=== PATIENT | female | born 1950 | race Two or more races ===

== ENCOUNTER 2022-07-07 07:35 | Day surgery (SDC) | payer OTHER ==
[~2022-07-07] VITALS: Ht 154.9 cm; Wt 56.7 kg
[2022-07-07] VITALS (10 sets, daily range): BP systolic 123–152; BP diastolic 56–66
[~2022-07-07 07:35] MED LIST: ASPI1TAB20 PO; GLIP5TAB12 PO; METF-370 PO; METO25TA5 PO
[2022-07-07] MEDS ORDERED: HEPARIN SODIUM (PORCINE) 5000 UNITS/ML 1ML VIAL ONE (09:46)
[2022-07-07] MEDS ORDERED: ANGIOMAX 250 MG VIAL IV ONE (09:46)
[2022-07-07] MEDS ORDERED: VERAPAMIL 2.5MG/ML INJ 2ML VIAL IV ONE (09:46)
[2022-07-07] MEDS ORDERED: IODIXANOL 320MG/ML 100ML BTL IV ONE (09:47)
[2022-07-07] MEDS ORDERED: fentaNYL CITRATE 100 MCG/2 ML VL ONE (09:47)
[2022-07-07] MEDS ORDERED: LIDOCAINE 2%HCL (LOCAL ANESTH.) INJ 20ML MDV ONE (09:47)
[2022-07-07] MEDS ORDERED: MIDAZOLAM HCL 2MG/2ML 2ml VIAL (1mg/ml) ONE (09:47)
== END 2022-07-07 12:50 | disposition home or self-care (01) ==
LOC: CATH 07:35
PROVIDERS: ATTEND Internal Medicine Cardiovascular Disease
DX: R94.39 Abnormal result of other cardiovascular function study (principal); I25.10 Atherosclerotic heart disease of native coronary artery without angina pectoris; I10 Essential (primary) hypertension; E11.9 Type 2 diabetes mellitus without complications; E78.5 Hyperlipidemia, unspecified; Z20.822 Contact with and (suspected) exposure to COVID-19
CPT/HCPCS: 93458; J1644; J2250; J3010; Q9967; U0003; 99152

== ENCOUNTER 2024-11-05 14:13 | Emergency (ER) | payer OTHER ==
[~2024-11-05] VITALS: Ht 154.9 cm; Wt 50.0 kg
[~2024-11-05 14:13] MED LIST changes: -GLIP5TAB12 PO; +GLIP5TAB21 PO
--- NOTE | 2024-11-05 14:33 | ED.PDOC ---
HPI Comments 74-year-old female with PMHx Anxiety, HTN, DM presents with a chief complaint of palpitations x 2 months intermittently. Patient states that she has been having palpitations for the past x 2 months, but most recently began having multiple episodes this morning. Patient reports that symptoms began around 0900 this morning. Patient also mentions that she gets anxious when she has palpitations. Patient denies any nausea, vomiting, diarrhea, or active chest pain at this time. Patients EKG shows NSR with rate of 97. Blood sugar was 151 in triage. No other symptoms or modifying factors present at this time. Time Seen by MD: 14:22 Reviewed Notes: Nurses Notes, Medications, Allergies Allergies: Coded Allergies: NO KNOWN ALLERGIES (Unverified , 07/05/22) Home Meds Reported Medications Aspirin (Aspir-81) 81 Mg Tab, 1 TAB PO DAILY 07/05/22 Metoprolol Tartrate (Metoprolol Tartrate) 25 Mg Tab, 25 MG PO DAILY 07/05/22 Glipizide (Glipizide) 5 Mg Tab, 5 MG PO DAILY 07/05/22 Metformin Hydrochloride (Metformin Hcl) 500 Mg Tab, 1000 MG PO BID 07/05/22 Information Source: Patient Mode of Arrival: Ambulatory Severity: Moderate Timing: Months Duration: Intermittent Prehospital treatment: None Location: Chest (L) Radiation: No Radiation Quality: Other (PALPITATIONS) Cardiac Risk Factors: HTN, Diabetes, Other (ANXIETY) PE Risk Factors: None History of: None Past Medical History PAST MEDICAL HISTORY: Anxiety, DM, HTN Surgical History: Hysterectomy PHLEBOTOMIST ASSOCIATE History: Denies all PHLEBOTOMIST ASSOCIATE Hx Family History Family History: Reviewed,noncontributory to illness Social History Smoker: Non-Smoker Alcohol: Denies ETOH Use Drugs: Denies Drug Use Lives In: Home Constitutional: denies: chills, diaphoresis, fatigue, fever, malaise, sweats, weakness, others EENTM: denies: blurred vision, double vision, ear bleeding, ear discharge, ear drainage, ear pain, ear ringing, eye pain, eye redness, hearing loss, mouth pain, mouth swelling, nasal discharge, nose bleeding, nose congestion, nose pain, photophobia, tearing, throat pain, throat swelling, voice changes, others Respiratory: denies: cough, hemoptysis, orthopnea, SOB at rest, shortness of breath, SOB with excertion, stridor, wheezing, others Cardiovascular: reports: palpitations; denies: chest pain, dizzy spells, diaphoresis, Dyspnea on exertion, edema, irregular heart beat, left arm pain, lightheadedness, PND, syncope, others Gastrointestinal: denies: abdomen distended, abdominal pain, blood streaked bowels, constipated, diarrhea, dysphagia, difficulty swallowing, hematemesis, melena, nausea, poor appetite, poor fluid intake, rectal bleeding, rectal pain, vomiting, others Genitourinary: denies: abnormal vagina bleeding, burning, dyspareunia, dysuria, flank pain, frequency, hematuria, incontinence, pain, , vagina discharge, urgency, others Neurological: denies: dizziness, fainting, headache, left sided numbness, left sided weakness, numbness, paresthesia, pre-existing deficit, right sided numbness, right sided weakness, seizure, speech problems, tingling, tremors, weakness, others Musculoskeletal: denies: back pain, gout, joint pain, joint swelling, muscle pain, muscle stiffness, neck pain, others Integumetry: denies: bruises, change in color, change in hair/nails, dryness, laceration, lesions, lumps, rash, wounds, others Allergic/Immunocompromised: denies: Difficulty Healing, Frequent Infections, Hives, Itching, others Hematologic/Lymphatic: denies: anemia, blood clots, easy bleeding, easy bruising, swollen glands, others Endocrine: denies: excessive hunger, excessive sweating, excessive thirst, excessive urination, flushing, intolerance to cold, intolerance to heat, unexplained weight gain, unexplained weight loss, others Psychiatric: reports: anxiety; denies: bipolar disorder, depression, hopeless, panic disorder, schizophrenia, sleepless, suicidal, others All Other Systems: Reviewed and Negative Physical Exam General Appearance: No Apparent Distress HEENT: Normal ENT Inspection, Pharynx Normal, TMs Normal Neck: Full Range of Motion, Non-Tender, Normal, Normal Inspection Respiratory: Chest Non-Tender, Lungs Clear, No Accessory Muscle Use, No Respiratory Distress, Normal Breath Sounds Cardiovascular: No Edema, No JVD, No Murmur, No Gallop, Tachycardia Breast Exam: Deferred Gastrointestinal: No Organomegaly, Non Tender, No Pulsatile Mass, Normal Bowel Sounds, Soft Genitalia: Deferred Pelvic: Deferred Rectal: Deferred Extremities: No calf tenderness, Normal capillary refill, Normal inspection, No rmal range of motion, Non-tender, No pedal edema Musculoskeletal : Apperance: Normal Neurologic: Alert, 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 Was a procedure done?: No CP Differential Dx Differential Diagnosis: A-fib, Angina, ME, Pulmonary Embolus Differential Diagnosis: CHF X-Ray, Labs, Meds, VS Vital Signs Date Time Temp Pulse Resp B/P (MAP) Pulse Ox O2 Delivery O2 Flow Rate FiO2 11/05/24 20:29 97.7 79 18 150/69 (96) 98 97.7 11/05/24 14:40 97.9 93 18 147/69 (95) 96 11/05/24 14:33 97 11/05/24 14:18 97 Lab Test 11/05/24 17:15 11/05/24 15:25 11/05/24 14:26 Range/Units Troponin I High Sensitivity 12 13 13 </=34 ng/L White Blood Count 7.5 4.4-10.8 10^3/uL Red Blood Count 4.21 4.0-5.20 10^6/uL Hemoglobin 11.1 L 12.2-16.2 g/dL Hematocrit 34.2 L 36.0-46.0 % Mean Corpuscular Volume 81.3 80.0-100.0 fL Mean Corpuscular Hemoglobin 26.5 L 28.0-32.0 pg Mean Corpuscular Hemoglobin Concent 32.6 32.0-36.0 g/dL Red Cell Distribution Width 15.5 H 11.8-14.3 % Platelet Count 258 140-450 10^3/uL Mean Platelet Volume 8.5 6.9-10.8 fL Neutrophils (%) (Auto) 78.5 37.0-80.0 % Lymphocytes (%) (Auto) 13.8 10.0-50.0 % Monocytes (%) (Auto) 6.9 0.0-12.0 % Eosinophils (%) (Auto) 0.3 0.0-7.0 % Basophils (%) (Auto) 0.5 0.0-2.0 % Neutrophils # (Auto) 5.9 1.6-8.6 10 ^3/uL Lymphocytes # (Auto) 1.0 0.4-5.4 10 ^3/uL Monocytes # (Auto) 0.5 0-1.3 10 ^3/uL Eosinophils # (Auto) 0 0-0.8 10 ^3/uL Basophils # (Auto) 0 0-0.2 10 ^3/uL Nucleated Red Blood Cells 0.0 % Prothrombin Time 10.3 9.3-11.8 sec Prothrombin Time INR 0.97 0.9-1.15 Activated Partial Thromboplast Time 27.9 24.5-34.5 SEC Sodium Level 134 L 136-145 mmol/L Potassium Level 4.2 3.5-5.1 mmol/L Chloride Level 96 L 98-107 mmol/L Carbon Dioxide Level 26 20-31 mmol/L Anion Gap 12 5-15 Blood Urea Nitrogen 25 H 9-23 mg/dL Creatinine 0.73 0.550-1.02 mg/dL Glomerular Filtration Rate Calc 86 >90 mL/min BUN/Creatinine Ratio 34.2 H 10.0-20.0 Serum Glucose 141 H 74-106 mg/dL Calcium Level 10.2 8.7-10.4 mg/dL Magnesium Level 1.5 L 1.6-2.6 mg/dL Total Bilirubin 0.4 0.2-1.0 mg/dL Aspartate Amino Transferase (AST) 19 13-40 U/L Alanine Aminotransferase (ALT) 13 7-40 U/L Alkaline Phosphatase 109 46-116 U/L Total Protein 7.3 5.7-8.2 g/dL Albumin 4.8 3.2-4.8 g/dL Chest X-Ray Impression: No acute cardiopulmonary process. The CBC and chemistry panel are within normal limits The magnesium is 1.5 The patient was completely asymptomatic at this time The troponin level x3 is negative The patient was being discharged by the choice physician We did recommend that the patient should possibly observed but at this time they feel that they can have the patient follow up as an outpatient The patient will return to the emergency department's condition worsens. Images Reviewed?: Images reviewed and evaluated by me Time of 1ST Reevaluation: 14:52 Reevaluation 1ST: Unchanged Patient Education/Counseling: Diagnosis, Treatment, Prognosis Family Education/Counseling: Diagnosis, Treatment, Prognosis Departure 1 Departure Time of Disposition: 20:45 Impression: Primary Impression: Palpitations Disposition: 01 HOME / SELF CARE / HOMELESS Condition: Fair Discharged With: Self Critical Care Note Critical Care Time?: No Stability Stability form required: No Heart Score Heart Score: Heart Score Response (Comments) Value History N/A 0 EKG N/A 0 Age N/A 0 Risk Factors N/A 0 Troponin N/A 0 Total 0 I personally scribed for ROLF AVITIA MD ([email or web address]) on 11/05/24 at 14:33. Electronically submitted by Rashid Leung ([email or web address]). I personally scribed for ROLF AVITIA MD ([email or web address]) on 11/05/24 at 15:49. Electronically submitted by Rashid Leung ([email or web address]). I personally scribed for ROLF AVITIA MD ([email or web address]) on 11/05/24 at 16:13. Electronically submitted by Rashid Leung ([email or web address]). ROLF AVITIA MD Nov 05, 2024 14:33
--- NOTE | 2024-11-05 14:40 | DVH ---
CHEST RADIOGRAPH Indication: CP Technique: Single frontal view of the chest was obtained COMPARISON: None FINDINGS: No pneumothorax, pulmonary edema, or consolidative infiltrates. The heart is not enlarged. The aort ic arch is calcific. There is thoracic degenerative disc disease. IMPRESSION: No acute cardiopulmonary process.
[2024-11-05 15:01] LABS: Basophils # (auto) 0 10 ^3/uL (0-0.2); Eosinophils # (auto) 0 10 ^3/uL (0-0.8); Monocytes # (auto) 0.5 10 ^3/uL (0-1.3)
[2024-11-05 15:03] LABS: Basophils % (auto) 0.5 % (0.0-2.0); Eosinophils % (auto) 0.3 % (0.0-7.0); Hematocrit 34.2 % (36.0-46.0); Hemoglobin 11.1 g/dL (12.2-16.2); Lymphocytes % (auto) 13.8 % (10.0-50.0); Mean Corpuscular Hemoglobin 26.5 pg (28.0-32.0); Mean Corpuscular Hgb Conc. 32.6 g/dL (32.0-36.0); Mean Corpuscular Volume 81.3 fL (80.0-100.0); Monocytes % (auto) 6.9 % (0.0-12.0); Neutrophils # (auto) 5.9 10 ^3/uL (1.6-8.6); Neutrophils % (auto) 78.5 % (37.0-80.0); Platelet Count (auto) 258 10^3/uL (140-450); Red Blood Cells 4.21 10^6/uL (4.0-5.20); Red Cell Distribution Width 15.5 % (11.8-14.3); White Blood Cell 7.5 10^3/uL (4.4-10.8)
[2024-11-05 15:21] LABS: Alanine Aminotransferase 13 U/L (7-40); Alkaline Phosphatase 109 U/L (46-116); Anion Gap 12 (5-15); Aspartate Aminotransferase 19 U/L (13-40); BUN/Creatinine Ratio 34.2 (10.0-20.0); Bilirubin, Total 0.4 mg/dL (0.2-1.0); Calcium 10.2 mg/dL (8.7-10.4); Carbon Dioxide 26 mmol/L (20-31); Potassium 4.2 mmol/L (3.5-5.1); Total Protein 7.3 g/dL (5.7-8.2)
[2024-11-05 15:31] LABS: Albumin 4.8 g/dL (3.2-4.8); Blood Urea Nitrogen 25 mg/dL (9-23); Chloride 96 mmol/L (98-107); Glucose 141 mg/dL (74-106); Sodium 134 mmol/L (136-145)
[2024-11-05 15:40] LABS: INR 0.97 (0.9-1.15); Partial Thromboplastin Time 27.9 SEC (24.5-34.5); Prothrombin Time 10.3 sec (9.3-11.8)
[2024-11-05 20:29] VITALS: BP 150/69; PULSE 79; RESP 18; TEMP 97.7; O2SAT 98
--- NOTE | 2024-11-05 20:52 | DVHINCON2 ---
RENEE SANFORD [facility] 11/05/242051: Date of service: Nov 05, [address] Thompson Reason for Consultation Medical Management History of Present Illness Mrs. Trudy Wilson is a 74 yo female with a history of anxiety, hypertension, DM who presents with a chief complaint of intermittent palpitations x 2 months. Patient reports she was seen by cardiology outpatient and was told " she was fine" . Patient reports anxiety when she is having palpitations. Patient denies chest pain, dyspnea, palpitations at this time. Past Medical History Anxiety, Hypertension, Diabetes Mellitus Past Surgical History None reported Family History None contributory Social History Smoker: Non-Smoker Alcohol: Denies ETOH Use Drugs: Denies Drug Use Lives In: Home Allergies: Coded Allergies: NO KNOWN ALLERGIES (Unverified , 07/05/22) Home Meds Reported Medications Aspirin (Aspir-81) 81 Mg Tab, 1 TAB PO DAILY 07/05/22 Metoprolol Tartrate (Metoprolol Tartrate) 25 Mg Tab, 25 MG PO DAILY 07/05/22 Glipizide (Glipizide) 5 Mg Tab, 5 MG PO DAILY 07/05/22 Metformin Hydrochloride (Metformin Hcl) 500 Mg Tab, 1000 MG PO BID 07/05/22 Review of Systems Constitutional: denies: chills, diaphoresis, fatigue, fever, malaise, sweats, weakness, others EENTM: denies: blurred vision, double vision, ear bleeding, ear discharge, ear drainage, ear pain, ear ringing, eye pain, eye redness, hearing loss, mouth pain, mouth swelling, nasal discharge, nose bleeding, nose congestion, nose pain, photophobia, tearing, throat pain, throat swelling, voice changes, others Respiratory: denies: cough, hemoptysis, orthopnea, SOB at rest, shortness of breath, SOB with excertion, stridor, wheezing, others Cardiovascular: ; denies: palpitations, chest pain, dizzy spells, diaphoresis, Dyspnea on exertion, edema, irregular heart beat, left arm pain, lightheadedness, PND, syncope, others Gastrointestinal: denies: abdomen distended, abdominal pain, blood streaked bowels, constipated, diarrhea, dysphagia, difficulty swallowing, hematemesis, melena, nausea, poor appetite, poor fluid intake, rectal bleeding, rectal pain, vomiting, others Genitourinary: denies: abnormal vagina bleeding, burning, dyspareunia, dysuria, flank pain, frequency, hematuria, incontinence, pain, , vagina discharge, urgency, others Neurological: denies: dizziness, fainting, headache, left sided numbness, left sided weakness, numbness, paresthesia, pre-existing deficit, right sided numbness, right sided weakness, seizure, speech problems, tingling, tremors, weakness, others Musculoskeletal: denies: back pain, gout, joint pain, joint swelling, muscle pa in, muscle stiffness, neck pain, others Integumetry: denies: bruises, change in color, change in hair/nails, dryness, laceration, lesions, lumps, rash, wounds, others Allergic/Immunocompromised: denies: Difficulty Healing, Frequent Infections, Hives, Itching, others Hematologic/Lymphatic: denies: anemia, blood clots, easy bleeding, easy bruising, swollen glands, others Endocrine: denies: excessive hunger, excessive sweating, excessive thirst, excessive urination, flushing, intolerance to cold, intolerance to heat, unexplained weight gain, unexplained weight loss, others Psychiatric: ; denies: bipolar disorder, depression, hopeless, panic disorder, schizophrenia, sleepless, suicidal, others All Other Systems: Reviewed and Negative Vital Signs Vital Signs Date Time Temp Pulse Resp B/P (MAP) Pulse Ox O2 Delivery O2 Flow Rate FiO2 11/05/24 20:29 97.7 79 18 150/69 (96) 98 97.7 Physical Exam General Appearance: No Apparent Distress HEENT: Normal ENT Inspection, Pharynx Normal, TMs Normal Neck: Full Range of Motion, Non-Tender, Normal, Normal Inspection Respiratory: Chest Non-Tender, Lungs Clear, No Accessory Muscle Use, No Respiratory Distress, Normal Breath Sounds Cardiovascular: No Edema, No JVD, No Murmur, No Gallop, No Tachycardia Breast Exam: Deferred Gastrointestinal: No Organomegaly, Non Tender, No Pulsatile Mass, Normal Bowel Sounds, Soft Genitalia: Deferred Pelvic: Deferred Rectal: Deferred Extremities: No calf tenderness, Normal capillary refill, Normal inspection, Normal range of motion, Non-tender, No pedal edema Musculoskeletal : Apperance: Normal Neurologic: Alert, 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, No Motor Deficits, Normal Affect, Normal Mood, No Sensory Deficits Cerebellar Function: Normal Reflexes: Normal Skin: Dry, Normal Color, Warm Lymphatic: No Adenopathy Labs/Diagnostic Data Labs Test 11/05/24 17:15 11/05/24 14:26 Range/Units Troponin I High Sensitivity 12 </=34 ng/L White Blood Count 7.5 4.4-10.8 10^3/uL Red Blood Count 4.21 4.0-5.20 10^6/uL Hemoglobin 11.1 L 12.2-16.2 g/dL Hematocrit 34.2 L 36.0-46.0 % Mean Corpuscular Volume 81.3 80.0-100.0 fL Mean Corpuscular Hemoglobin 26.5 L 28.0-32.0 pg Mean Corpuscular Hemoglobin Concent 32.6 32.0-36.0 g/dL Red Cell Distribution Width 15.5 H 11.8-14.3 % Platelet Count 258 140-450 10^3/uL Mean Platelet Volume 8.5 6.9-10.8 fL Neutrophils (%) (Auto) 78.5 37.0-80.0 % Lymphocytes (%) (Auto) 13.8 10.0-50.0 % Monocytes (%) (Auto) 6.9 0.0-12.0 % Eosinophils (%) (Auto) 0.3 0.0-7.0 % Basophils (%) (Auto) 0.5 0.0-2.0 % Neutrophils # (Auto) 5.9 1.6-8.6 10 ^3/uL Lymphocytes # (Auto) 1.0 0.4-5.4 10 ^3/uL Monocytes # (Auto) 0.5 0-1.3 10 ^3/uL Eosinophils # (Auto) 0 0-0.8 10 ^3/uL Basophils # (Auto) 0 0-0.2 10 ^3/uL Nucleated Red Blood Cells 0.0 % Prothrombin Time 10.3 9.3-11.8 sec Prothrombin Time INR 0.97 0.9-1.15 Activated Partial Thromboplast Time 27.9 24.5-34.5 SEC Sodium Level 134 L 136-145 mmol/L Potassium Level 4.2 3.5-5.1 mmol/L Chloride Level 96 L 98-107 mmol/L Carbon Dioxide Level 26 20-31 mmol/L Anion Gap 12 5-15 Blood Urea Nitrogen 25 H 9-23 mg/dL Creatinine 0.73 0.550-1.02 mg/dL Glomerular Filtration Rate Calc 86 >90 mL/min BUN/Creatinine Ratio 34.2 H 10.0-20.0 Serum Glucose 141 H 74-106 mg/dL Calcium Level 10.2 8.7-10.4 mg/dL Magnesium Level 1.5 L 1.6-2.6 mg/dL Total Bilirubin 0.4 0.2-1.0 mg/dL Aspartate Amino Transferase (AST) 19 13-40 U/L Alanine Aminotransferase (ALT) 13 7-40 U/L Alkaline Phosphatase 109 46-116 U/L Total Protein 7.3 5.7-8.2 g/dL Albumin 4.8 3.2-4.8 g/dL Assessment This is a 74 yo female with a history of anxiety, Hypertension, DM who presents to the hospital with palpitations x 2 months intermittently. Patient with EKG NSR 90's, SBP 140's, denies chest pain, dyspnea, headaches, dizziness, currently denies any palpitations. Patient Chest x ray unremarkable Na 134, K 4.2, BUN 25/0.73, Mg 1.5, WBC 7.5, H7H 11.1/34.2, Platelets 258. I was called by ED Provider for medical management consultation. Patient does not meet admission criteria at this time. Problems(with codes): (1) Palpitations Plan/Recommendation This is a 74 yo female with a history of anxiety, Hypertension, DM who presents to the hospital with palpitations x 2 months intermittently. Patient with EKG NSR 90's, SBP 140's, denies chest pain, dyspnea, headaches, dizziness, currently denies any palpitations. Patient Chest x ray unremarkable Na 134, K 4.2, BUN 25/0.73, Mg 1.5, WBC 7.5, H7H 11.1/34.2, Platelets 258. I was called by ED Provider for medical management consultation. Patient does not meet admission criteria at this time. Recommendation: Magnesium coverage in ED. discharge home with outpatient follow up with PCP and cardiology. I spoke with O CM instructional assistant Vicky for outpatient follow up with PCP and cardiology. Patient made aware of all above , verbalized understanding. Discussed all above with ED MD Dr. Thompson. Discussed all above with supervising MD. Plan discussed with: Other NYHA Physical activity limitations: ASHOK FIGUEROA MD 11/06/24 1419: Allergies: Coded Allergies: NO KNOWN ALLERGIES (Unverified , 07/05/22) Home Meds Reported Medications Aspirin (Aspir-81) 81 Mg Tab, 1 TAB PO DAILY 07/05/22 Metoprolol Tartrate (Metoprolol Tartrate) 25 Mg Tab, 25 MG PO DAILY 07/05/22 Glipizide (Glipizide) 5 Mg Tab, 5 MG PO DAILY 07/05/22 Metformin Hydrochloride (Metformin Hcl) 500 Mg Tab, 1000 MG PO BID 07/05/22 Additional Comments Additional Comments Additional Comments I agree with the assessment and plan as outlined by my nurse practitioner. HMO hospice case manager has been notified regarding close follow up with the PCP and Cardiology in one week. RENEE SANFORD Nov 05, 2024 20:52 ASHOK LOOMIS MD Nov 06, 2024 14:19
--- NOTE | 2024-11-06 12:42 | ECG ---
[facility] Test Date: 2024-11-05 Test Time: 14:18:37 Pat Name: MARLA ORTIZ Department: ED Room: Gender: F [employer] Production Manager: JUSTINE : 1950 Requested By: ROLF AVITIA Order Number: [id number] Reading MD: Harsha Gómez Measurements Intervals [place] Rate: 97 P: 65 UT: 154 QRS: -40 QRSD: 101 T: 44 QT: 343 QTc: 436 Interpretive Statements Sinus rhythm Abnormal R-wave progression, late transition Left ventricular hypertrophy Electronically Signed On 11-07-2024 13:13:38 PST by Harsha Gómez Please click the below link to view image of tracing.
== END 2024-11-05 21:44 | disposition home or self-care (01) ==
LOC: ER 14:20
DX: R00.2 Palpitations (principal); F41.9 Anxiety disorder, unspecified; E11.9 Type 2 diabetes mellitus without complications; I10 Essential (primary) hypertension; Z90.710 Acquired absence of both cervix and uterus
CPT/HCPCS: 36415; 71045; 80053; 83735; 84484; 85025; 85610; 85730; 93005